=== PATIENT | female | born 1990 | race Caucasian/White ===

== ENCOUNTER 2018-06-20 14:54 | Emergency (ER) | payer OTHER ==
[~2018-06-20] VITALS: Ht 172.7 cm; Wt 181.4 kg
[2018-06-20] MEDS ORDERED: ZYRTEC10 MG (15:24)
== END 2018-06-20 16:10 | disposition home or self-care (01) ==
LOC: ED 14:54
DX: J70.5 Respiratory conditions due to smoke inhalation (principal)
CPT/HCPCS: 99283